=== PATIENT | female | born 1995 | race Caucasian/White ===

== ENCOUNTER 2021-03-11 12:08 | Emergency (ER) | payer OTHER ==
[2021-03-12 08:06] LABS: SARS-CoV-2 NAA Not Detected (Not Detected)
== END 2021-03-11 14:31 | disposition home or self-care (01) ==
LOC: JVIRT 12:08
DX: Z11.52 Encounter for screening for COVID-19 (principal)
CPT/HCPCS: C9803; G2251-GT; U0003; U0005